=== PATIENT | female | born 1960 | race Caucasian/White ===

== ENCOUNTER → 2016-12-15 | Outpatient (CLI) | payer OTHER | LOC: RAD 08:28 | DX: R06.02 Shortness of breath (principal) ==

== ENCOUNTER → 2019-03-24 | Outpatient (CLI) | payer OTHER | LOC: RAD 09:01 | DX: J98.4 Other disorders of lung (principal); J98.11 Atelectasis; Z88.0 Allergy status to penicillin ==

== ENCOUNTER → 2019-04-19 | Outpatient (CLI) | payer OTHER | LOC: CAT 09:01 | DX: J98.4 Other disorders of lung (principal); K76.89 Other specified diseases of liver; R91.1 Solitary pulmonary nodule; G47.33 Obstructive sleep apnea (adult) (pediatric); K22.2 Esophageal obstruction; M25.78 Osteophyte, vertebrae; Z68.37 Body mass index [BMI] 37.0-37.9, adult ==

== ENCOUNTER → 2019-08-17 | Outpatient (CLI) | payer OTHER | LOC: MRI 11:46 | DX: G24.9 Dystonia, unspecified (principal); G47.00 Insomnia, unspecified; R40.0 Somnolence; R42 Dizziness and giddiness; Z88.0 Allergy status to penicillin ==

== ENCOUNTER → 2019-09-16 | Outpatient (CLI) | payer OTHER | LOC: CAT 09:01 | DX: Z13.6 Encounter for screening for cardiovascular disorders (principal); I25.10 Atherosclerotic heart disease of native coronary artery without angina pectoris; E78.00 Pure hypercholesterolemia, unspecified ==

== ENCOUNTER → 2019-09-23 | Outpatient (CLI) | payer OTHER | LOC: CAT 13:51 | DX: J98.4 Other disorders of lung (principal); R91.1 Solitary pulmonary nodule; K76.89 Other specified diseases of liver; K44.9 Diaphragmatic hernia without obstruction or gangrene; M25.78 Osteophyte, vertebrae ==

== ENCOUNTER → 2019-11-10 | Outpatient (CLI) | payer OTHER | LOC: ULTRA 07:40 | DX: E04.1 Nontoxic single thyroid nodule (principal); E07.9 Disorder of thyroid, unspecified; J98.4 Other disorders of lung ==

== ENCOUNTER 2020-03-26 10:42 | Inpatient (IN) | payer OTHER ==
[~2020-03-26] VITALS: Ht 162.6 cm; Wt 111.6 kg
[2020-03-26] VITALS (7 sets, daily range): BP systolic 111–143; BP diastolic 48–73
--- NOTE | ~2020-03-26 | HC ---
[facility] [place] [address] CONSULTATION Name: JYOTI FRANCO Room #: 355 ADM IN M.R.#: [id number] Admission: 03/26/20 Attend Phys: Brannon Velez MD Discharge: Date of : 60 Report #: [id number] THIS REPORT FOR: cc: Brannon Velez MD, Neal A. MD Khosla, Parveen K. MD ~ CC: Brannon Velez DATE OF SERVICE: 03/27/2020 HISTORY OF PRESENT ILLNESS: This is a 59-year-old female patient who was evaluated by me for headache as well as the neck pain. She was also having a sore throat. The pain was worse on the movement of the neck. The headache was predominantly in the back portion of the head. She was running some temperature. She was started on antibiotics and in fact the symptoms have improved this morning. She received antibiotics yesterday. She had a spinal tap done yesterday and the spinal tap looks traumatic. She has a ____ count of 238 and a ____ count of only 4. The protein was high, but that is difficult to interpret because of the RBCs there. As mentioned above, she is much improved. Presently, she is in COVID isolation. REVIEW OF SYSTEMS: A 14-point review of system was carried out. 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 The etiology for this is not clear. She thinks it was diagnosed about 5 years ago. She does have a history of hypothyroidism. That was a relevant 14-point review of system. Otherwise, she is pretty healthy. PAST MEDICAL HISTORY: Positive for diaphragm paralysis. FAMILY HISTORY: Unremarkable. SOCIAL HISTORY: She does not drink any alcohol or smoke. PHYSICAL EXAMINATION: Indicate she is alert, responsive, able to follow simple and complex command. Her cranial nerve examination appears unremarkable. She has a symmetrical strength, sensation, reflexes and tone in all 4 extremities. She does not appear to have any meningeal sign. I did not look at the fundus. She does not appear to be in any significant respiratory difficulty. Her blood pressure is 124/46, respirations 16, pulse is 83, temperature is 97.5. Pulses are palpable. Cardiac examination appear unremarkable. Her hearing and vision looks adequate. She has no thyroid mass. There is no carotid bruit. LABORATORY DATA: Her white count was actually normal at 8.4. Her sodium is also normal. She did have a CT scan of the head and subsequently a spinal tap and [place] [address] CONSULTATION Name: JYOTI FRANCO Room #: [address] [place] [address] [place] ..#: [id number] Admission: 03/26/20 Attend Phys: Brannon Velez MD Discharge: Date of : 60 Report #: [id number] IMPRESSION: It is unlikely that there is any neurological etiology for the patient's symptoms. It is more likely it is an infectious etiology, where the infection is not very clear. She has responded to the antibiotics. It does not appear to be meningitis. However, paraspinal infections need to be excluded in this patient. The possibility of viral infection is also there. My suggestion will be to get an MRI of the brain and C-spine done, which I ordered. If that workup is unremarkable, then I think it will even more likely it is an Infectious Disease etiology and we will defer that evaluation and management to yourself or Infectious Disease if you want to consult. Even now, it looks like it is more likely infectious etiology and you may consider Infectious Disease consult for that. I will await the MRI of the brain and C-spine and leave any further recommendation if you have. Thank you very much for this referral. By: 0813 [id number] Paulo Claros MD /nt
[2020-03-26] MEDS ORDERED: AMITRIPTYLINE H25 M4 PO (10:59)
[2020-03-26] MEDS ORDERED: SYNTHROID88 MC1 PO (10:59)
[2020-03-26] MEDS ORDERED: PROTONIX40 M3 PO (10:59)
[2020-03-26 12:55] LABS: URINE BILIRUBIN NEGATIVE (Negative); URINE BLOOD TRACE (Negative); URINE CLARITY CLEAR; URINE COLOR YELLOW; URINE GLUCOSE-RANDOM* NEGATIVE (Negative); URINE KETONES NEGATIVE (Negative); URINE LEUKOCYTES-REFLEX NEGATIVE (Negative); URINE NITRITE-REFLEX NEGATIVE (Negative); URINE PROTEIN (DIPSTICK) NEGATIVE (Negative); URINE SPECIFIC GRAVITY 1.015 (1.005-1.035); URINE UROBILINOGEN 0.2 E.U./dl (0.2-1.0)
[2020-03-26 12:56] LABS: ABSOLUTE NEUTROPHILS 7.1 thou/uL (1.4-8.2); BASOPHILS 0.5 % (0.0-2.0); EOSINOPHILS 1.7 % (0.0-3.0); HEMATOCRIT 39.2 % (37.0-47.0); LYMPHOCYTES 9.1 % (24.0-44.0); MCHC 33.3 g/dL (28.0-37.0); MCV 84.1 fL (80.0-100.0); MONOCYTES 4.3 % (1.0-8.0); PLATELET COUNT 257 thou/uL (150-400); POLYS 84.4 % (36.0-66.0); RBC 4.66 mil/uL (4.20-5.00); RDW 13.7 % (10.5-14.5); WBC 8.4 thou/uL (4.0-11.0)
[2020-03-26 13:03] LABS: AMP/METHAMP Negative (Negative); ANION GAP 7 mmol/L (7-16); BARBITURATES Negative (Negative); BENZODIAZEPINES Negative (Negative); BUN 17 mg/dL (7-18); CALCIUM 8.9 mg/dL (8.5-10.1); CHLORIDE 104 mmol/L (98-107); CO2 29 mmol/L (21-32); COCAINE Negative (Negative); CREATININE 0.8 mg/dL (0.6-1.0); GLUCOSE 97 mg/dL (74-106); METHADONE Negative (Negative); OPIATES Negative (Negative); PCP Negative (Negative); POTASSIUM 4.1 mmol/L (3.5-5.1); SODIUM 140 mmol/L (136-145)
[2020-03-26 13:09] LABS: ALBUMIN 3.5 g/dL (3.4-5.0); DIRECT BILIRUBIN < 0.1 mg/dL (<0.1-0.2); SGOT 17 U/L (15-37); SGPT 23 U/L (30-65); TOTAL BILIRUBIN 0.4 mg/dL (0.2-1.0)
[2020-03-26 13:12] LABS: APTT 27.4 Seconds (24.5-32.8); PROTIME 10.1 Seconds (9.3-11.4)
[2020-03-26 17:34] LABS: CSF CLARITY CLEAR; VOLUME 9 ml
[2020-03-26 17:36] LABS: CSF COLOR COLORLESS
[2020-03-26 17:48] LABS: CSF GLUCOSE 56 mg/dL (40-70)
[2020-03-26 18:00] LABS: CSF RBC 238 /mm3; CSF WBC 4 /mm3 (0-10)
--- NOTE | 2020-03-26 19:19 | NUR ---
Pt arrived in the floor at 1847, Report received from ER at 1809. Transferred to bed safely. A+Ox4. On room air. Admission vital signs to be taken. Admission history, assessment and history to be continued by SEDA Conde. Dr Velez informed re: admission to [facility], asked re: diet order, medication reconcilation to be reviewed, IV fluids if ever needed. With consult to Dr Claros- called answering service called, to inform physician. Lumbar puncture done at ER, specimen has been sent as reported. Maintained on isolation- still a/w orders for Covid swab- night cleaner nurse informed; pt to stay on bedrest until 1900 post lumbar puncture. With SL at L AC. With orders for antibiotics at 1700 at 1730, ER did not administer medications; Ceftriaxone scanned but not given and transport staff handed over Vancomycin IV and Ceftriaxone IV. To continue monitoring patient.
[2020-03-27 00:29] VITALS: BP 151/69
--- NOTE | 2020-03-27 01:48 | NUR ---
PT ARRIVED TO THE UNIT AROUND 1900 WITH RN AND CMM TECHNICIAN ESCORT. ALL OF PT'S BELONGINGS ARRIVED TO THE UNIT. UPON INITIAL ASSESSMENT PT WAS LAYING FLAT, SHE EXPLAINED TO THE RN ABOUT CURRENT SITUATION AFTER LUMBAR PUNCTURE THAT OCCURED AROUND 1600. PT WAS TOLD THAT SHE WAS TO REMAIN SUPINE FOR 4 HOURS POST LUMBAR PUNCTURE PROCEDURE. PT'S CONDITION DID NOT WORSEN OVER NIGHT BUT PT DID STATE HAVING CONTINUOUS PAIN AT THE NECK 8/10 PX. PT'S VITAL SIGNS WERE TAKEN EVERY HOUR POST LUMBAR PUNCTURE ON THE UNIT X3. VS WERE STABLE. MEDICATIONS ARE BEING ADMINISTERED. PT ORIENTED TO THE UNIT AND BED, PT EDUCATED ON CURRENT PLAN OF CARE. PT'S PRIMARY CONCERN AT THIS TIME IS TO DISCHARGE SOON POSSIBLE. WILL CONTINUE TO EDUCATE AND UPDATE NEEDED.
[2020-03-27 04:27] VITALS: BP 138/60
[2020-03-27 07:40] VITALS: BP 124/46
--- OUTSIDE RECORDS SUMMARY | 2020-03-27 12:45 | XMS REPORT | Summary of Care ---
Demographics + + + | Address | [address] | | | [place] [address] | + + + | Home Phone | | + + + | Preferred Language | Unknown | + + + | Marital Status | | + + + | Holiness Affiliation | Unknown | + + + | Race | Unknown | + + + | Ethnic Group | Unknown | + + + Author + + + | Author | [facility] | + + + | Organization | [facility] | + + + | Address | Unknown | + + + | Phone | Unavailable | + + + Support + + +---------+ + | Name | Relationship | Address | Phone | + + +---------+ + | Tomas Velazquez | ECON | Unknown | | + + +---------+ + Care Team Providers + +------+ + | Care Drama Teacher Name | Role | Phone | + +------+ + | Brannon Velez MD | PCP | | + +------+ + Encounter Details +------+---------+ + + + | Date | Type | Department | Care Team | Description | +------+---------+ + + + | 063 | Letter | [facility] | [place], | | | 0/20 | (Out) | [facility] | MD [address] | | | [address] | | [address] | [address], | | | | | [address] | [address] | | | | | [address] | [place] [address] | | | | | [place] [address] | [phone] | | | | | [phone] | [phone] | | | | | | (Fax) | | +------+---------+ + + + Allergies + + +---------+--------+ + | Active Allergy | Reactions | Severit | Noted | Comments | | | | y | Date | | + + +---------+--------+ + | Penicillin G | Other (See | | 12/15/ | | | | Comments) | | 2017 | | + + +---------+--------+ + documented as of this encounter (statuses as of 03/27/2020) Medications + + +---------+--------+-----+-----+------+ | Medication | Sig | Dispens | Refill | Sta | End | Stat | | | | ed | s | rt | | us | | | | | | Les | Les | | | | | | | e | e | | + + +---------+--------+-----+-----+------+ | [place]-3 Fatty | Take by mouth. | | 0 | | | Acti | | Acids (FISH OIL | | | | | | ve | | PO) | | | | | | | + + +---------+--------+-----+-----+------+ | MELATONIN PO | Take by mouth. | | 0 | | | Acti | | | | | | | | ve | + + +---------+--------+-----+-----+------+ | levothyroxine | TAKE 1 TABLET | 90 | 4 | 08/ | | Acti | | (SYNTHROID, | DAILY | tablet | | 23/ | | ve | | LEVOTHROID) 100 | | | | 201 | | | | MCG tablet | | | | 9 | | | + + +---------+--------+-----+-----+------+ | | Take 1,000 Units | | 0 | | | Acti | | cholecalciferol | by mouth daily | | | | | ve | | (VITAMIN D3) | | | | | | | | 1000 units | | | | | | | | tablet | | | | | | | + + +---------+--------+-----+-----+------+ | pantoprazole | TAKE 1 TABLET | 180 | 4 | 01/ | | Acti | | (PROTONIX) 40 MG | TWICE A DAY | tablet | | 06/ | | ve | | tablet | | | | 202 | | | | | | | | 0 | | | + + +---------+--------+-----+-----+------+ | amitriptyline | Take 1 tablet | 90 | 1 | 03/ | 03/ | Acti | | (ELAVIL) 50 MG | (50 mg total) by | tablet | | 06/ | 06/ | ve | | tablet | mouth nightly | | | 202 | 202 | | | | | | | 0 | 1 | | + + +---------+--------+-----+-----+------+ | pramipexole | TAKE 1 TABLET BY | 60 | 5 | 05/ | | Acti | | (MIRAPEX) 1 MG | MOUTH 2 TIMES A | tablet | | 06/ | | ve | | tablet | DAY FOR 30 DAYS | | | 202 | | | | | | | | 0 | | | + + +---------+--------+-----+-----+------+ documented as of this encounter (statuses as of 03/27/2020) Active Problems + + + | Problem | Noted Date | + + + | Insomnia | 11/27/2019 | + + + + + | Overview: - continue melatonin | | - Taper off amitriptyline | | - Okay to start trazodone 50 mg daily at bedtime | | Last Assessment & Plan: - continue melatonin | | - Taper off amitriptyline | | - Okay to start trazodone 50 mg daily at bedtime | + + + + + | Pulmonary infiltrate | 11/27/2019 | + + + + + | Overview: - CT scan of the chest: 09/23/19 | | | | several small soft tissue nodules in the right lobe | | diffuse groundglass opacities, and several pulmonary | | infiltrates measuring 4 mm x 10 mm predominantly | | right upper lobe. Unchanged from previous exam and | | compared to 03/20/16. Plan: - follow-up CT scan in 12 | | months. Last Assessment & Plan: - CT scan of the | | chest: 09/23/19 | | | | several small soft tissue nodules in the right lobe | | diffuse groundglass opacities, and several pulmonary | | infiltrates measuring 4 mm x 10 mm predominantly | | right upper lobe. Unchanged from previous exam and | | compared to 03/20/16. Plan: - follow-up CT scan in 12 | | months. | + + + + + | Gastroesophageal reflux disease without esophagitis | 04/17/2019 | + + + + + | Overview: - Symptoms currently controlled with | | pantoprazole Last Assessment & Plan: - Symptoms | | currently controlled with pantoprazole | + + + + + | Other specified hypothyroidism | 04/17/2019 | + + + + + | Overview: - Continues on Levothyroxine- | | Therapeutic levels not verified. Last Assessment & | | Plan: - Continues on Levothyroxine- Therapeutic | | levels not verified. | + + + + + | Diaphragm paralysis | 04/17/2019 | + + + + + | Overview: - Chronic paralyzed Right Hemidiaphragm | | - CXR 03/24/19 (compared to 05/08/2016)- Continue | | supportive Care Last Assessment & Plan: - Chronic | | paralyzed Right Hemidiaphragm - CXR 03/24/19 (compared | | to 05/08/2016)- Continue supportive Care | | Last Assessment & Plan: - Chronic paralyzed Right Hemidiaphragm | |- CXR 03/24/19 (compared to 05/08/2016) | |- Continue supportive Care | + + + + + | Shortness of breath | 03/24/2019 | + + + + + | Overview: - Dyspnea: Multifactorial: KENZIE, | | deconditioning, paralyzed hemidiaphragm Last | | Assessment & Plan: - Dyspnea: Multifactorial: KENZIE, | | deconditioning, paralyzed hemidiaphragm | + + + + + | Restrictive lung disease | 03/24/2019 | + + + + + | Overview: - Restrictive Lung Disease - Mild - | | Autoimmune evaluation negative- Spirometry 02/2019: | | FEV1 1.69L(68%), FVC 1.91 L(63%), FEV1/FVC 89. - | | PFT's 04/2019: FEV1 1.88L (76%), FVC 2.22 L (73%), | | FEV1/FVC 85. Post bronchodilator w/o significant | | response. TLC 3.72 L(76%), DLCO 68- Spirometry | | 10/2019: FEV1 2.07L(84%), FVC 2.33 L(77%), FEV1/FVC | | 89. Last Assessment & Plan: - Restrictive Lung | | Disease - Mild - Autoimmune evaluation negative- | | Spirometry 02/2019: FEV1 1.69L(68%), FVC 1.91 L(63%), | | FEV1/FVC 89. - PFT's 04/2019: FEV1 1.88L (76%), FVC | | 2.22 L (73%), FEV1/FVC 85. Post bronchodilator w/o | | significant response. TLC 3.72 L(76%), DLCO 68- | | Spirometry 10/2019: FEV1 2.07L(84%), FVC 2.33 L(77%), | | FEV1/FVC 89. | + + + + + | KENZIE (obstructive sleep apnea) | 03/24/2019 | + + + + + | Overview: - mild KENZIE, and continued | | hypersomnolence- Home Sleep Study : 05/19/19 - AHI | | 5.6, [id number] Caio 83%. ESS 13- [facility] | | Obtain CPAP device. - Compliance: 83%- Current | | Settings:AT CPAP [id number]- AHI : 2.7Plan: - | | Encourage compliance. - continue current settings | | Last Assessment & Plan: - mild KENZIE, and continued | | hypersomnolence- Home Sleep Study : 05/19/19 - AHI | | 5.6, [id number] Caio 83%. ESS 13- DME: [facility] - | | Obtain CPAP device. - Compliance: 83%- Current | | Settings:AT CPAP [id number]- AHI : 2.7Plan: - | | Encourage compliance. - continue current settings | |- Home Sleep Study : 05/19/19 - AHI 5.6, [id number] Caio 83%. ESS 13 | |- DME: [facility] | |- Obtain CPAP device. | |- Compliance: 83% | |- Current Settings:AT CPAP [id number] | |- AHI : 2.7 | | | |Plan: | |- Encourage compliance. | |- continue current settings | + + + + + | Esophageal stricture | 03/24/2019 | + + + | BMI 37.0-37.9, adult | 03/04/2018 | + + + documented as of this encounter (statuses as of 03/27/2020) Immunizations + + + + | Name | Administration Dates | Next Due | + + + + | Influenza TIV | 07/25/2017 | | | (IM) | | | + + + + | Influenza, | 09/28/2014 | | | Unspecified | | | + + + + | Td, Unspecified | 01/01/2015 | | + + + + documented as of this encounter Social History + +-------+---------+--------+------+ | Tobacco Use | Types | Packs/D | Years | Date | | | | ay | Used | | + +-------+---------+--------+------+ | Never Smoker | | | | | + +-------+---------+--------+------+ + +---+---+---+ | Smokeless | | | | | Tobacco: Never | | | | | Used | | | | + +---+---+---+ + + +---------+ + | Alcohol Use | Drinks/Week | oz/Week | Comments | + + +---------+ + | No | | | | + + +---------+ + + + + | Sex Assigned at | Date Recorded | | | | + + + | Not on file | | + + + + + + + | Job Start Date | Occupation | Industry | + + + + | Not on file | Not on file | Not on file | + + + + + + + + | Travel History | Travel Start | Travel End | + + + + + + | No recent travel history | | available. | + + documented as of this encounter Last Filed Vital Signs Not on filedocumented in this encounter Plan of Treatment + +---------+ + + | Health | Due | Last Done | Comments | | Maintenance | Date | | | + +---------+ + + | COLONOSCOPY | | | | | | 961 | | | + +---------+ + + | PAP SMEAR | | | | | | 961 | | | + +---------+ + + | INFLUENZA | | 07/25/2017, 09/28/2014 | | | VACCINE | 020 | | | + +---------+ + + | MAMMOGRAM | | 11/18/2019 | | | | 021 | | | + +---------+ + + documented as of this encounter Results Not on filedocumented in this encounter Insurance + +------+ +------+-------+---------+------+ | Payer | Bene | Subscrib | Effe | Phone | Address | Type | | | fit | er ID | ctiv | | | | | | Plan | | e | | | | | | / | | Date | | | | | | Grou | | s | | | | | | p | | | | | | + +------+ +------+-------+---------+------+ | UNITED | UNIT | [id number] | 09/28/ | | | | | HEALTHCARE | ED | x | 2018 | | | | | | HEAL | | -Pre | | | | | | [employer] | | sent | | | | | | RE | | | | | | | | [employer] | | | | | | | | CE | | | | | | | | PLUS | | | | | | + +------+ +------+-------+---------+------+ documented as of this encounter"
--- NOTE | 2020-03-27 13:22 | NUR ---
PATIENT COVID RESULTED NEGATIVE, RESULT CALLED TO DR. HOOD, HE STATES THAT COVID TEST WAS FOR THE LUMBAR PUNCTURE HE DID NOT SUSPECT COVID. CALLED ANDRÉS THOMAS RN TO MAKE AWARE. AWAITING CALL BACK FOR D/C ISOLATION ORDERS.
[2020-03-27] MEDS ORDERED: CEFDINIR300 MG PO (13:30)
--- NOTE | 2020-03-27 13:42 | NUR ---
SPOKE WITH DR. HOOD REGARDING PLAN. HE PLANS TO D/C PATIENT TONIGHT ON PO ANTIBIOTICS AND HAVE FOLLOW UP MRI OUTPATIENT. CALLED MRI TO SCHEDULE APPOINTMENT AND SPOKE WITH PANDA. AWAITING CALL BACK TO VERIFY APPOINTMENT.
[2020-03-27 13:52] VITALS: BP 124/46
--- NOTE | 2020-03-27 14:54 | NUR ---
PATIENT GIVEN DISCHARGE INSTRUCTIONS REGARDING FOLLOW UP APPOINTMENTS, NEW MEDICATIONS, OUTPATIENT MRI SCHEDULED FOR THURSDAY. PATIENT UNDERSTANDING ON ALL TEACHING GIVEN AT THIS TIME. ALL QUESTIONS ANSWERED AT THIS TIME. PATIENT IV SALINE LOCK REMOVED AND TOLERATED WELL. POINT OF CARE TECHNICIAN REMOVED AND RETURNED TO NURSES STATION. ALL PATIENT BELONGINGS TAKEN WITH HER AT DISCHARGE. WHEELED OFF UNIT. IN STABLE CONDITION UPON DISCHARGE.
== END 2020-03-27 14:49 | disposition home or self-care (01) | DRG 99 ==
LOC: ER 10:42 → EROBS 16:35 → 3W 16:35 → EROBS 18:07 → 3W 19:58
PROVIDERS: Emergency Medicine; ADMIT Family Medicine; ATTEND Family Medicine
PROC: 00JU3ZZ Inspection of Spinal Canal, Percutaneous Approach (ICD-10-PCS; principal; 2020-03-26)
PROC: 009U3ZX Drainage of Spinal Canal, Percutaneous Approach, Diagnostic (ICD-10-PCS; principal; 2020-03-26)
PROC: B01B1ZZ Fluoroscopy of Spinal Cord using Low Osmolar Contrast (ICD-10-PCS; principal; 2020-03-26)
DX: G03.9 Meningitis, unspecified (principal); J98.6 Disorders of diaphragm; Z20.828 Contact with and (suspected) exposure to other viral communicable diseases; K21.9 Gastro-esophageal reflux disease without esophagitis; Z79.899 Other long term (current) drug therapy; Z88.0 Allergy status to penicillin
CPT/HCPCS: 10080

== ENCOUNTER → 2021-01-16 | Outpatient (CLI) | payer OTHER ==
[~2021-01-16] MED LIST: AMITRIPTYLINE H25 M4 PO; CEFDINIR300 MG PO; PROTONIX40 M3 PO; SYNTHROID88 MC1 PO
== END ==
LOC: ULTRA 09:28
PROVIDERS: ATTEND Otolaryngology Plastic Surgery within the Head & Neck
DX: E04.1 Nontoxic single thyroid nodule (principal)